=== PATIENT | male | born 1970 | race Caucasian/White ===

== ENCOUNTER → 2017-02-23 | Day surgery (SDC) | payer OTHER ==
[~2017-02-23] VITALS: Ht 170.2 cm; Wt 93.9 kg
[~2017-02-23] MED LIST: LOVENOX SC; MELATONIN PO; TRAMADOL HCL50 M1 PO; TYLENOL PO; VENLAFAXINE HC150 M1 PO; VENLAFAXINE HC225 MG PO; ZOCOR; coumadin
[2017-02-23 06:23] LABS: PT 10.9 SEC (9.4-12.5)
--- NOTE | 2017-02-23 09:34 | RADIOLOGY REPORT ---
EXAMINATION: XR KNEE, LEFT CLINICAL INFORMATION: Bone ossicle. COMPARISON: CT scan 12/25/2016. TECHNIQUE: A single lateral intraoperative view of the left knee was obtained. FINDINGS: There is a needle along the anterior aspect of the knee with the tip at the level of the anterior tibial tuberosity, just below the previously demonstrated osseous fragment. There is thickening of the distal patellar tendon. IMPRESSION: 1. Lateral view of the knee demonstrating a needle marker anteriorly at the level of the tibial tuberosity.
--- NOTE | 2017-02-23 11:10 | RADIOLOGY REPORT ---
EXAMINATION: XR KNEE, LEFT CLINICAL INFORMATION: Bone ossicle removal. COMPARISON: 02/23/2017 at 0903 hours TECHNIQUE: Single crosstable lateral of the left knee. FINDINGS: Similar to the prior study, a needle is seen projecting over the proximal tibia metaphysis, just below the previously demonstrated osseous fragment. Expected intraoperative findings are also seen with subcutaneous emphysema. A tiny faint 0.8 cm long curvilinear structure is seen inferior to this needle, projecting over the soft tissues anterior to the proximal tibial metaphysis. IMPRESSION: Crosstable lateral intraoperative view of the knee demonstrate a needle marker in similar positioning to the prior study, anteriorly at the level of the tibial tuberosity just inferior to a bone ossicle. Of note, there is a thin curvilinear structure seen inferior to the needle which is of uncertain clinical etiology. The possibility of a foreign body is not excluded. This critical result was discussed with Dr. Whitman at 1103am on 02/23/2017 and it was ascertained that the content and urgency of the report was understood at the time of direct communication.
--- NOTE | 2017-02-23 14:20 | RADIOLOGY REPORT ---
EXAMINATION: XR KNEE, LEFT CLINICAL INFORMATION: History of bone ossicle removal. COMPARISON: CT images of the knee from 12/25/2016 and recent radiographs of the knee. TECHNIQUE: Crosstable lateral radiograph of the left knee was obtained. FINDINGS: The ossicle of the distal patellar tendon has been resected. There is mild osteophyte formation of the patella. There is soft tissue swelling in the region of surgery. Again noted is the small curvilinear structure (suture material?) projecting over the region of surgery. There is a small joint effusion and intra-articular gas. IMPRESSION: The ossicle of the distal patellar tendon has been surgically removed.
--- NOTE | 2017-02-23 16:17 | Operative Report ---
Operative/Inv Procedure Report Surgery Date: 02/23/17 Name of Procedure: Excision symptomatic ununited bone ossicles left knee tibial tubercle ([place]- Schlatter's). 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 Post-Operative Diagnosis: Same. Estimated Blood Loss: less than 50ml Surgeon/Credit Report Checker: ОЛЬГА MCGOWAN,BRITTANY / [employer] Anesthesia: laryngeal mask airway Monitors: EKG/blood pressure/oxygen saturation IV Fluids: Lactated Ringer's. Implants: None. Urine Output: None. Drains: None. Specimens: Excised bone fragments sent to pathology for histopathological documentation. Microbiology: None. Tourniquet: 2 hours at 300 mmHg. Complications: None known. Condition: Stable. 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 This was interfering significantly with his basic daily activities both in and out of work. This included particular difficulty with kneeling. An attempt was made at conservative management which proved to be unsatisfactory. A diagnostic lidocaine injection was administered to the region of the tibial tubercle which did provide excellent anesthetic short-term symptom relief. At this time we did discuss the risks and benefits and expected outcomes of continued attempts at nonoperative management including activity modification and using very well-padded knee pads for kneeling, etc. We did discuss the same with respect to surgical intervention with excision of the symptomatically ununited bone ossicles. I did recommend that we get a CAT scan of the knee to better define the position-location of the bone fragments within the knee. This was obtained. The patient very strongly wished to move forward with surgical intervention. With respect to excision of the bone ossicles I did recommend that we attempt to perform this endoscopically (arthroscopically) and convert to a mini open patella tendon splitting arthrotomy if I could not accomplish this endoscopically (arthroscopically). All the patient's questions were answered at length. Surgical consent was obtained. Operative/Procedure Note Note: The patient was brought to the operating room and placed on the operating room table in the supine position. Gen. anesthesia was induced by the anesthesiologist. All bony prominences were well-padded. A dose of IV antibiotics were given for infection prophylaxis. A bump was placed onto the left buttocks in order to internally rotate the left lower extremity. A well- padded tourniquet was applied to the proximal portion of the left thigh. Compression sleeves were placed on the contralateral right leg to minimize venous pooling. The patient's left lower extremity was then prepped and draped in usual sterile fashion. The patient's knee was marked for a planned endoscopic anteromedial and anterolateral portal wounds with the intention of directing instrumentation and camera deep to the patella ligament for anticipated excision of the major bone ossicle. The skin was marked as well to delineate the general region of the tibial tubercle. The case was started without tourniquet. An anteromedial portal below the joint line was made using a #11 scalpel blade. The arthroscope with trocar was introduced through the skin and passed through the soft tissues deep to the patella ligament. We next created anterolateral portal as already marked also using a #11 scalpel blade. This allowed me to bring in a trocar and ultimately to bring in jenifer and tissue ablation wand and graspers. I spent some time clearing out the bursa deep to the distal patella ligament which was obstructing Y-view. Once this was cleared out I did have visualization of the upper anterior tibial. It was difficult to appreciate a distinct bone ossicle but there did appear to be multiple areas of irregularity of somewhat cancellus appearing bone without a cortical shell. Bleeding became somewhat problematic and I ultimately needed to raise a tourniquet to 300 mmHg after exsanguinating the limb. This helped with visualization but did not allow me to distinctly find a specific bone ossicle. I used a combination of shaver and tissue bone elevator to probe and free up loose bone fragments. Bone fragments were excised with a combination of shaver and suction and grasping instrumentation. The remaining bone was quite soft as this did appear to be cancellus bone. This was smoothed down with a combination of tissue ablation wand set to "play" the anterior bone surface as well as with 80 bone rasp. Note: The patella ligament insertion at the upper tibial tubercle was visualized throughout this entire process and protected from injury by instrumentation used in this retropatellar tendon location. I decided to take an x-ray lateral view of the knee to see whether or not I had successfully removed the ununited bone ossicle satisfactorily. I placed an 18-gauge spinal needle percutaneously through the skin at the level of the upper tibial tubercle that I had previously marked on the skin. The needle tip was visualized down to bone. A lateral x-ray of the knee was obtained and I was able to localize the needle quite easily but x-rays confirmed that I had not excised the major ununited bone ossicle. I continued working with shaver and bur and grasping instruments and tissue ablation wand freeing up some additional loose cancellus bone but I did not encounter a distinct definitive bone ossicle. I repeated another lateral view of the knee which once again showed retention of the ununited bone ossicle though I had shaved down the anterior tibial bone diminishing the prominence there. Dr. Sales now scrubbed in as an extra set of skilled hands as I did need additional help with endoscopic visualization and ultimately did need to convert to a distal patella ligament splitting mini arthrotomy. Dr. Sales was needed to help with simultaneous dissection through the patella ligament to excise the bone ossicle while also working with an arthroscope and arthroscopic instrumentation and another set of hands. We did consider at the bone ossicle could instead be encased within the patella ligament as opposed to being located deep to the patella ligament. We did therefore ultimately decide to make this small miniarthrotomy with splitting of the distal patella ligament. This was performed with scalpel to make the skin incision and to dissect through the subcutaneous cutaneous tissues. After that Metzenbaum scissors were used to elevate full skin with subcutaneous tissue flaps. Some bursal tissue was excised and we now had visualization of the anterior surface of the patella ligament. We were able to palpate what we thought was the ununited bone ossicle present within the patella ligament fibers at this location. We next made a split in the patella ligament and spread the fibers and with dissection we were able to find the major ununited bone ossicle which was in fact still located within the soft tissue of the patella ligament and not ultimately visualized from below the ligament endoscopically. This bone ossicle was removed and sent with the prior bone fragments to pathology for histopathological documentation. We obtained one final lateral radiograph of the knee which now did confirm that we had successfully excised the ununited bone ossicle satisfactorily. Our attention was now directed towards closure. All wounds as well as the retropatellar ligament space were all copiously irrigated with saline. All instrumentation was removed from the knee. The tourniquet was deflated and hemostasis was achieved with a combination of manual pressure and electrocautery. The defect split of the patella ligament was repaired using 0 Vicryl placed in interrupted simple fashion. The subcutaneous tissues over the patella ligament split were repaired using 2-0 Vicryl placed in interrupted buried fashion. The skin margins were then approximated using 3-0 Prolene placed in interrupted simple fashion. The wounds for the anteromedial and anterolateral endoscopic portals were repaired using 3-0 Prolene placed in interrupted simple fashion as well. All wounds were now washed and dried. Adaptic was placed over the wounds followed by sterile gauze dressings and abdominal pads. The dressings were held in place with Bryon bandages. The patient was awakened from general anesthesia. He was transferred to the stretcher and brought to the recovery room in stable condition having tolerated the procedure well.
== END ==
LOC: STS 02:04
PROVIDERS: Orthopaedic Surgery
DX: M92.42 Juvenile osteochondrosis of patella, left knee (principal); M25.562 Pain in left knee; Z86.718 Personal history of other venous thrombosis and embolism; Z79.01 Long term (current) use of anticoagulants; E78.5 Hyperlipidemia, unspecified; E66.9 Obesity, unspecified; G47.33 Obstructive sleep apnea (adult) (pediatric); Z87.891 Personal history of nicotine dependence
CPT/HCPCS: 36415; 73560-LT; J0131; J0690